=== PATIENT | female | born 1995 | race Caucasian/White ===

== ENCOUNTER 2019-10-18 09:08 | Emergency (ER) | payer OTHER ==
[~2019-10-18] VITALS: Ht 157.5 cm; Wt 83.9 kg
[~2019-10-18 09:08] MED LIST: AMOXICILLIN 50500 MG PO
[2019-10-18] MEDS ORDERED: NORCO 5-325 TA1 EAC2 PO (10:16)
[2019-10-18 10:35] VITALS: BP 144/82
== END 2019-10-18 10:36 | disposition home or self-care (01) ==
LOC: M.ERS 09:08
DX: S86.812A Strain of other muscle(s) and tendon(s) at lower leg level, left leg, initial encounter (principal); X58.XXXA Exposure to other specified factors, initial encounter; Y93.89 Activity, other specified; Y92.89 Other specified places as the place of occurrence of the external cause; Y99.8 Other external cause status

== ENCOUNTER → 2019-10-24 | Outpatient (CLI) | payer OTHER ==
[~2019-10-24] MED LIST changes: +NORCO 5-325 TA1 EAC2 PO
== END ==
LOC: M.MRI 08:05
PROVIDERS: ATTEND Registered Nurse Diabetes Educator
DX: M25.561 Pain in right knee (principal)